=== PATIENT | female | born 1995 | race Caucasian/White ===

== ENCOUNTER 2023-10-07 10:44 | Outpatient (CLI) | payer BC, SELFPAY | END 2023-10-07 10:45 | disposition home or self-care (01) | PROVIDERS: PCP Advanced Practice Midwife; Visit Provider Advanced Practice Midwife | DX: O03.9 Complete or unspecified spontaneous abortion without complication (principal); O20.9 Hemorrhage in early pregnancy, unspecified | CPT/HCPCS: 84702; 86850; 86900; 86901 ==